=== PATIENT | female | born 1990 | race Caucasian/White ===

== ENCOUNTER 2018-03-15 10:53 | Emergency (ER) | payer MEDICAID ==
[~2018-03-15] VITALS: Ht 167.6 cm; Wt 124.7 kg
[2018-03-15] MEDS ORDERED: IBUPROFEN600 MG ORAL (12:00)
[2018-03-15] MEDS ORDERED: LIDOCAINE VISC100 ML ORAL (12:00)
[2018-03-15] MEDS ORDERED: Lidocaine 2% Visc 15ml soln ORAL ONE (12:00)
[2018-03-15] MEDS ORDERED: CLARITIN-D 121 EAC1 ORAL (12:01)
[2018-03-15 12:14] VITALS: BP 119/77
--- NOTE | 2018-03-16 06:05 | Emergency Room Report ---
History of Present Illness General Chief Complaint: Sore Throat Source: Patient Present Illness HPI Patient's 27-year-old female presented after increased sore throat. Patient gradual onset of symptoms with the past 2 days. Patient previous a left-sided earache. Patient had sick contacts at home. She denied feeling dizzy or lightheaded. She denied any fever. She denied neck stiffness. Patient nonproductive cough. Allergies: Coded Allergies: No Known Allergies (Unverified , 03/15/18) Patient History Past Medical History: see triage record Last Menstrual Period: 02/18/18 : 4 Para: 4 Reviewed Nursing Documentation: PMH: Agreed; PSxH: Agreed Nursing Documentation-PMH Past Medical History: No Stated History Review of Systems All Other Systems: negative except mentioned in HPI Physical Exam Vital Signs Date Time Temp Pulse Resp B/P (MAP) Pulse Ox O2 Delivery O2 Flow Rate FiO2 03/15/18 11:24 98.1 103 19 119/77 96 Room Air 98.1 General Appearance: well appearing, no apparent distress, alert, GCS 15 Head: normocephalic, atraumatic ENT: hearing grossly normal, normal voice, TMs + canals normal, uvula midline, moist mucus membranes, pharyngeal erythema Neck: full range of motion, supple Respiratory: lungs clear, no respiratory distress, speaking full sentences Cardiovascular #1: normal inspection, regular rate, rhythm Gastrointestinal: normal inspection Musculoskeletal: no calf tenderness Neurologic: normal gait Psychiatric: mood/affect normal Skin: no rash Medical Decision Making Diagnostic Impression: Primary Impression: Acute viral pharyngitis ER Course patient presented for sore throat.Differential diagnosis included but was not limited to meningitis, exudative tonsillitis, retropharyngeal abscess, epiglottitis, strep pharyngitis. Patient has a benign exam and does not appear to require any further imaging or laboratory testing at this time. The patient appears have a viral pharyngitis. The medications were ordered for pain however patient eloped prior to notifying staff. The patient was also present with her 2 children who appear to have similar illness. The patient is advised saltwater gargling. She is advised to recheck with primary care physician in the next few days. Last Vital Signs Date Time Temp Pulse Resp B/P (MAP) Pulse Ox O2 Delivery O2 Flow Rate FiO2 03/15/18 12:14 98.1 19 119/77 96 Room Air 98.1 6/9/18 11:24 103 Status: improved Disposition: ELOPED Condition: Stable Scripts Loratadine/Pseudoephedrine (CLARITIN-D 12 HOUR TABLET) 1 Each Tab.er.12h 1 TAB ORAL EVERY 12 HOURS, #14 TAB Prov: Adal Serna MD 03/15/18 Lidocaine HCl 2% Viscous (Lidocaine HCl 2% Viscous) 100 Ml Solution 15 ML ORAL QID for pain, #120 ML Prov: Adal Serna MD 03/15/18 Ibuprofen* (MOTRIN*) 600 Mg Tablet 600 MG ORAL Q8H PRN for For Pain, #30 TAB 0 Refills Prov: Adal Serna MD 03/15/18 Referrals: TARIQ WILLIS,REFERRING (PCP) Patient Instructions: Pharyngitis, [id number] Additional Instructions: Gargle with salt water. Recheck with your doctor in 1-2 days Adal Serna MD Mar 16, 2018 06:05
== END 2018-03-15 12:14 | disposition left against medical advice (07) ==
LOC: EMR 12:05
DX: J02.9 Acute pharyngitis, unspecified (principal); R05 Cough
CPT/HCPCS: 99284

== ENCOUNTER 2018-05-08 13:21 | Emergency (ER) | payer MEDICAID ==
[~2018-05-08] VITALS: Ht 167.6 cm; Wt 121.1 kg
[~2018-05-08 13:21] MED LIST: CLARITIN-D 121 EAC1 ORAL; IBUPROFEN600 MG ORAL; LIDOCAINE VISC100 ML ORAL
[2018-05-08 13:45] VITALS: BP 109/55
[2018-05-08] MEDS ORDERED: Acetaminophen 500mg (ES) tab ORAL ONE (13:45)
--- NOTE | 2018-05-08 13:45 | Emergency Room Report ---
History of Present Illness General Chief Complaint: Abdominal Pain Source: Patient Present Illness HPI Patient is a 27-year-old female who presented after increased lower abdominal pain. The patient gradual onset of symptoms. Patient reports having intermittent abdominal pain worse on the left side. Patient reported having associated constipation. Any black or bloody stools. She denies being however she has had not had menses for approximately 6 months. She states that she had been previously given Depo-Provera injections. She reports having intermittent nausea worse in the morning. She denies any vaginal bleeding. Allergies: Coded Allergies: No Known Allergies (Unverified , 03/15/18) Patient History Last Menstrual Period: 09/2017 Now: No - POSSIBLY : 4 Para: 4 Reviewed Nursing Documentation: PMH: Agreed; PSxH: Agreed Nursing Documentation-PMH Past Medical History: No Stated History Review of Systems All Other Systems: negative except mentioned in HPI Physical Exam Vital Signs Date Time Temp Pulse Resp B/P (MAP) Pulse Ox O2 Delivery O2 Flow Rate FiO2 05/08/18 13:26 98.1 87 18 114/74 98 Room Air 98.1 Sp02 EP Interpretation: reviewed, normal General Appearance: normal inspection, well appearing, no apparent distress, alert, GCS 15 Head: atraumatic ENT: normal ENT inspection, hearing grossly normal, normal voice Neck: normal inspection, full range of motion, supple, no bony tend Respiratory: normal inspection, lungs clear, normal breath sounds, no respiratory distress, no retraction, no wheezing Cardiovascular #1: regular rate, rhythm, no edema Gastrointestinal: normal inspection, normal bowel sounds, non tender, soft, no guarding, no hernia Genitourinary: no CVA tenderness Musculoskeletal: normal inspection, back normal, normal range of motion Neurologic: normal inspection, alert, oriented x3, responsive, valve fitter III-XII nml as tested, speech normal Psychiatric: normal inspection, judgement/insight normal, mood/affect normal Skin: normal inspection, normal color, no rash Medical Decision Making Diagnostic Impression: Primary Impression: Intrauterine ER Course Patient presented for abdominal pain. Differential diagnoses included ectopic ,ischemic bowel, appendicitis, perforated viscus, abdominal aortic aneurysm, inferior myocardial infarction, viral gastroenteritis. Because of complexity of patient's case laboratory testing and imaging studies were ordered.Patient was noted to have positive test. The further laboratory testing pelvic ultrasound was ordered due to patient's location of pain to rule out ectopic.Pelvic ultrasound showed intrauterine with adequate heart tones.The patient is advised to follow up with primary care doctor in 1-2 days for [employer] referral. Patient is advised to return if any worsening condition or if any changes in status that are concerning. This report is dictated with [email or web address] state game protector software which may occasionally lead to discrepancies related to use of this software. Labs Test 05/08/18 13:37 Urine Color Yellow Urine Appearance Clear Urine pH 6.5 (4.5-8.0) Urine Specific [place] 1.020 (1.005-1.035) Urine Protein Negative (NEGATIVE) Urine Glucose (UA) Negative (NEGATIVE) Urine Ketones Negative (NEGATIVE) Urine Occult Blood Negative (NEGATIVE) Urine Nitrite Negative (NEGATIVE) Urine Bilirubin Negative (NEGATIVE) Urine Urobilinogen Normal MG/DL (0.0-1.0) Urine Leukocyte Esterase 1+ (NEGATIVE) Urine RBC 0-2 /HPF (0 - 2) Urine WBC 2-4 /HPF (0 - 2) Urine Squamous Epithelial Cells Few /LPF (NONE/OCC) Urine Bacteria Few /HPF (NONE) Urine HCG, Qualitative Positive (NEGATIVE) Last Vital Signs Date Time Temp Pulse Resp B/P (MAP) Pulse Ox O2 Delivery O2 Flow Rate FiO2 05/08/18 13:26 98.1 87 18 114/74 98 Room Air 98.1 Status: improved Disposition: HOME, SELF-CARE Condition: Stable Scripts Doxylamine/Pyridoxine Hcl (CRISTIAN MACEDO 10-10 MG TABLET) 1 Each Tablet. 1 EACH PO [facility], #30 TAB Prov: Adal Serna MD 05/08/18 Adal Serna MD May 08, 2018 13:45
[2018-05-08 13:51] LABS: APPEARANCE,URINE CLEAR; BILIRUBIN, URINE NEGATIVE (NEGATIVE); GLUCOSE, URINE (UA) NEGATIVE (NEGATIVE); KETONES,URINE NEGATIVE (NEGATIVE); LEUKOCYTE ESTERASE ,URINE 1+ (NEGATIVE); NITRITE,URINE NEGATIVE (NEGATIVE); PH,URINE 6.5 (4.5-8.0); PROTEIN,URINE NEGATIVE (NEGATIVE); UROBILINOGEN,URINE NORMAL MG/DL (0.0-1.0)
[2018-05-08 14:02] LABS: COLOR,URINE YELLOW
[2018-05-08 14:59] LABS: BASOPHILS % (AUTO) 0.7 % (0.0-2.0); EOSINOPHILS % (AUTO) 1.6 % (0.0-3.0); HEMATOCRIT 45.6 % (37.0-47.0); HEMOGLOBIN 14.6 G/DL (12.0-16.0); LYMPHOCYTES % (AUTO) 25.1 % (20.0-45.0); MEAN CORPUSCULAR VOLUME 85 FL (80-99); MONOCYTES % (AUTO) 3.8 % (1.0-10.0); NEUTROPHILS % (AUTO) 68.8 % (45.0-75.0); PLATELET COUNT 232 K/UL (150-450); RED BLOOD COUNT 5.34 M/UL (4.20-5.40); RED CELL DISTRIBUTION WIDTH 12.7 % (11.6-14.8); WHITE BLOOD COUNT 8.2 K/UL (4.8-10.8)
[2018-05-08 15:10] LABS: ANION GAP 11 mmol/L (5-15); BLOOD UREA NITROGEN 10 mg/dL (7-18); CALCIUM 9.6 MG/DL (8.5-10.1); CARBON DIOXIDE 23 MMOL/L (21-32); CHLORIDE 103 MMOL/L (98-107); CREATININE 0.7 MG/DL (0.55-1.30); POTASSIUM 3.6 MMOL/L (3.5-5.1); SODIUM 137 MMOL/L (136-145)
[2018-05-08 15:15] LABS: ALANINE AMINOTRANSFERASE 19 U/L (12-78); ALBUMIN 3.6 G/DL (3.4-5.0); ALBUMIN/GLOBULIN RATIO 0.8 (1.0-2.7); ALKALINE PHOSPHATASE 70 U/L (46-116); ASPARTATE AMINO TRANSFERASE 17 U/L (15-37); BILIRUBIN,TOTAL 0.2 MG/DL (0.2-1.0)
[2018-05-08] MEDS ORDERED: DICLEGIS DR 101 EACH PO (15:36)
[2018-05-08 15:43] VITALS: BP 106/62
--- NOTE | 2018-05-08 15:44 | Diagnostic Imaging Report ---
Indication: Pelvic pain, nausea Technique: Transabdominal and endovaginal pelvic ultrasound was performed. Findings: An intrauterine gestational sac is identified. There is a identifiable yolk sac. A pole is identified. Spontaneous cardiac motion is noted on cine loops. heart rate measured at approximately 144 bpm. Bolan-rump length measures approximately 19 mm. Mean gestational sac diameter of approximately 43 mm. There is a isoechoic mass lesion in the myometrium likely representing a fibroid. This measures up to 4 cm. Right ovary is only seen transvaginally. It measures approximately 2.3 x 3 x 1.3 cm. Color flow to the right ovary is documented. Left ovary measures approximately 2.0 x 4.9 x 3 cm. Color Doppler flow to the left ovary is documented. There may be a small hemorrhagic or corpus luteum cyst in the left ovary. There is trace free pelvic fluid. IMPRESSION: Single live intrauterine with gestational age by ultrasound approximately 8 weeks 3 days. cardiac rate of approximately 144 bpm. Obstetric follow-up recommended. Probable uterine fibroid. Corpus luteum versus hemorrhagic left ovarian cyst. Attention on follow-up recommended. Color flow noted to the bilateral ovaries; no evidence of torsion at this time.
== END 2018-05-08 15:46 | disposition home or self-care (01) ==
LOC: EMR 14:11
DX: O26.899 Other specified pregnancy related conditions, unspecified trimester (principal); R10.9 Unspecified abdominal pain; Z3A.00 Weeks of gestation of pregnancy not specified
CPT/HCPCS: 36415; 76801; 80053; 81003; 81025; 83690; 84702; 85025; 86850; 86900; 86901; 96360; 99284